=== PATIENT | male | born 1980 | race Caucasian/White ===

== ENCOUNTER 2020-02-14 15:08 | Emergency (ER) | payer OTHER, SELFPAY ==
[2020-02-14 15:10] VITALS: BP 132/74; PULSE 70; RESP 18; TEMP 36.8; O2SAT 100
--- NOTE | 2020-02-14 16:10 | ED.EYEPROB ---
HPI - Eye Problem General Chief complaint: Eye Problems Stated complaint: EYE PAIN AND ANXIETY Time Seen by Provider: 02/14/20 15:25 Source: patient Mode of arrival: ambulatory Limitations: no limitations History of Present Illness HPI Narrative: Patient is a 39-year-old male who presents to the emergency department with report of left sided eye pain. Pain began 3 months ago after sustaining an injury. Patient was hit on the left side of his face and left eye with a stack of plastic hand-held shopping baskets at work. 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 Patient continues to have pain located deep in the left orbit and left eye. 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 No other abnormalities were noted. Optometrists note stated he had concern for trigeminal neuralgia among other considerations and felt patient needed to be seen by medical doctor. Evidently the clock and watch hands painter tried to call several doctors to get him in to be seen and could not get anyone to see him so sent him to the emergency department. Patient denies headache or facial pain. He locates the pain specifically behind the left eye. chief complaint: eye pain Onset (ago): month(s) (3) Duration: constant Location: left eye Mechanism: direct trauma Related Data Allergies Allergy/AdvReac Type Severity Reaction Status Date / Time tramadol Allergy Hives Verified 02/14/20 15:24 Review of Systems Review of Systems: All systems reviewed & are unremarkable except as noted in HPI and below PMFSH Surgical History Surgical History (Updated 02/14/20 @ 16:20 by Marley Kc MD) History of back surgery Social History Social History (Updated 02/14/20 @ 16:20 by Marley Kc MD) Smoking status: Never smoker Exam Const: General: cooperative, no acute distress and alert Nutritional Appearance: well nourished Orientation/consciousness: patient oriented x3 Limitations: no limitations HENMT: Mouth: Yes lip normal and Yes moist mucous membranes Eyes: Conjunctivae: conjunctivae normal Pupils: Equal, round and reactive pupils present EOM: EOMs intact bilaterally Resp: Effort & Inspection: normal respiratory effort Auscultation: clear to auscultation bilaterally Cardio: Rate: regular rate Rhythm: regular rhythm GI: GI Palp: Yes Soft to palpation and No Tenderness to palpation present (GI) Auscultation: normal bowel sounds Skin: General skin exam: normal color Neuro: General: patient oriented x3 Cognition (Neuro): normal cognition Speech: normal speech Extrem: General: normal to inspection, full ROM and no clubbing, cyanosis or edema Psych: Mental Status: mental status grossly normal Affect: normal affect Attitude: cooperative Course Course Emergency Course: Patient presents to the emergency department with chronic left-sided eye pain after an injury 3 months ago. Patient sent to the emergency department by clock and watch hands painter as clock and watch hands painter was unable to get him referred into a medical doctor. Patient does not have an acute medical emergency. He is being discharged with directory of physicians and referral to on-call primary care physician. Patient symptoms do not sound like trigeminal neuralgia as he does not have any facial pain in the trigeminal distribution and his pain is located posterior to the left eye. Patient has no other issues or complaints at this time and is appropriate for outpatient evaluation. Vital Signs Vital signs: Vital Signs Temperature 98.3 F 02/14/20 15:10 Pulse Rate 70 02/14/20 15:10 Respiratory Rate 18 02/14/20 15:10 Blood Pressure 132/74 02/14/20 15:10 Pulse Oximetry 100 02/14/20 15:10 Temperature 98.3 F 02/14/20 15:10 Pulse Rate 70 02/14/20 15:10 Respiratory Rate 18 02/14/20 15:10 Blood Pressure 132/74 02/14/20 15:10 Pulse Oximetry 100 04/15
[2020-02-14 17:05] VITALS: BP 132/74; PULSE 78; RESP 12; O2SAT 99
== END 2020-02-14 17:06 | disposition home or self-care (01) ==
PROVIDERS: Emergency Provider Emergency Medicine
DX: H57.12 Ocular pain, left eye (principal)
CPT/HCPCS: 99282